=== PATIENT | female | born 1940 | race Caucasian/White ===

== ENCOUNTER 2016-07-25 05:18 | Day surgery (SDC) | payer OTHER, MEDICARE ==
[~2016-07-25] VITALS: Ht 162.6 cm; Wt 79.5 kg
[~2016-07-25 05:18] MED LIST: CALCIUM 600 +1 EA12 PO; CENTRUM SILVER1 EAC4 PO; LEVO-T50 MCG PO
[2016-07-25 05:58] VITALS: BP 194/89
[2016-07-25 06:15] VITALS: BP 194/89
[2016-07-25] MEDS ORDERED: NORCO 5/3251 TABLET PO (12:18)
[2016-07-25 13:45] VITALS: BP 163/74
[2016-07-25 14:43] VITALS: BP 156/69
[2016-07-25 15:50] VITALS: BP 144/71
== END 2016-07-25 16:10 | disposition home or self-care (01) ==
LOC: SDC 05:18 → NUC 07:00 → SDC 07:00
DX: C50.212 Malignant neoplasm of upper-inner quadrant of left female breast (principal); C50.812 Malignant neoplasm of overlapping sites of left female breast; Z17.0 Estrogen receptor positive status [ER+]; C79.89 Secondary malignant neoplasm of other specified sites; E03.9 Hypothyroidism, unspecified; Z80.42 Family history of malignant neoplasm of prostate; Z82.0 Family history of epilepsy and other diseases of the nervous system; Z80.8 Family history of malignant neoplasm of other organs or systems
CPT/HCPCS: 78195; 78999; 88305; 88307; A9541; J0131; J0690; J1170; J2405; J2765; J3010

== ENCOUNTER 2016-08-01 10:03 | Day surgery (SDC) | payer OTHER, MEDICARE ==
[~2016-08-01] VITALS: Ht 162.6 cm; Wt 79.8 kg
[~2016-08-01 10:03] MED LIST changes: +NORCO 5/3251 TABLET PO
[2016-08-01 10:41] VITALS: BP 175/83
[2016-08-01] MEDS ORDERED: NORCO 5/3251 TABLET PO (15:09)
[2016-08-01 16:17] VITALS: BP 174/77
[2016-08-01 16:30] VITALS: BP 174/77
[2016-08-01 19:51] VITALS: BP 165/72
[2016-08-01 23:39] VITALS: BP 142/60
[2016-08-02 03:39] VITALS: BP 150/67
[2016-08-02 07:30] VITALS: BP 147/70
== END 2016-08-02 12:03 | disposition home or self-care (01) ==
LOC: SDC 10:03 → 2SOUTH 14:01 → 2EAST 14:01 → 2SOUTH 14:01 → SDC 15:10 → 2EAST 16:27
DX: C50.812 Malignant neoplasm of overlapping sites of left female breast (principal); C79.89 Secondary malignant neoplasm of other specified sites; Z17.0 Estrogen receptor positive status [ER+]; Z80.42 Family history of malignant neoplasm of prostate; Z80.8 Family history of malignant neoplasm of other organs or systems; Z82.0 Family history of epilepsy and other diseases of the nervous system
CPT/HCPCS: 88309; 94799; G0378; J0131; J0690; J1100; J1170; J2250; J2405; J2765; J3010; J7120

== ENCOUNTER 2016-08-10 05:49 | Day surgery (SDC) | payer OTHER, MEDICARE ==
[~2016-08-10] VITALS: Ht 162.6 cm; Wt 80.0 kg
[2016-08-10 07:29] VITALS: BP 179/81
[2016-08-10 13:20] VITALS: BP 161/74
[2016-08-10 14:20] VITALS: BP 188/81
== END 2016-08-10 17:00 | disposition home or self-care (01) ==
LOC: SDC 05:49 → NUC 05:49 → SDC 06:00
DX: C50.211 Malignant neoplasm of upper-inner quadrant of right female breast (principal); E03.9 Hypothyroidism, unspecified; Z80.42 Family history of malignant neoplasm of prostate; Z82.0 Family history of epilepsy and other diseases of the nervous system; Z80.8 Family history of malignant neoplasm of other organs or systems
CPT/HCPCS: 78195; 78999; 86850; 86900; 86901; 88305; 88307; 88331; A9541; J0330; J0690; J1170; J2250; J2405; J3010

== ENCOUNTER → 2017-03-13 | Outpatient (CLI) | payer OTHER, MEDICARE ==
[~2017-03-13] MED LIST changes: +OMEPRAZOLE20 MG PO
== END | disposition home or self-care (01) ==
LOC: AMB 11:58
PROC: 0JPT0WZ Removal of Totally Implantable Vascular Access Device from Trunk Subcutaneous Tissue and Fascia, Open Approach (ICD-10-PCS; principal; 2017-03-13)
DX: Z45.2 Encounter for adjustment and management of vascular access device (principal); Z85.3 Personal history of malignant neoplasm of breast; Z92.21 Personal history of antineoplastic chemotherapy